=== PATIENT | female | born 1990 | race Caucasian/White ===

== ENCOUNTER 2017-10-16 11:09 | Emergency (ER) | payer OTHER ==
[~2017-10-16] VITALS: Ht 172.7 cm; Wt 115.9 kg
[~2017-10-16 11:09] MED LIST: AMPHETAMINE SAL30 MG PO; MOTRIN800 MG PO; NORCO 7.5/321 TABLET PO; PANTOPRAZOLE SO40 MG PO; PERCOCET 5/31 TABLET PO; PROAIR HFA8.5 GM IH; VALIUM5 MG PO
[2017-10-16] MEDS ORDERED: PERCOCET 5/31 TABLET PO (13:44)
[2017-10-16 14:01] VITALS: BP 127/99
== END 2017-10-16 14:03 | disposition home or self-care (01) ==
LOC: EME 11:09
DX: M62.830 Muscle spasm of back (principal); Z88.8 Allergy status to other drugs, medicaments and biological substances
CPT/HCPCS: 99281; 99284; J1885